=== PATIENT | female | born 1950 | race Caucasian/White ===

== ENCOUNTER → 2016-09-03 | Outpatient (CLI) | payer OTHER ==
[~2016-09-03] MED LIST: AMLO2.5T PO; ASPI81TA28 PO; CHOL2000 PO; CRS/10 PO; CYAN100020 PO; OPTIRAY 320 IV PRN
--- NOTE | 2016-09-03 14:20 | DIAGNOSTIC IMAGING REPORT ---
CT SOFT TISSUE NECK WITH CT DOSE: 351.21 mGycm CLINICAL HISTORY: LYMPHADENOPATHY TECHNIQUE: Helical images were acquired during intravenous administration of 119 cc of Optiray 320. COMPARISON STUDY: MRI study dated 12/09/2012 FINDINGS: The visualized portions of the lung apices are unremarkable. No thyroid masses are visualized. No salivary gland masses are visualized. There are no pathologically enlarged cervical lymph nodes. No necrotic nodes are evident. There are no fluid collections suspicious for abscess. There is no evidence of airway compromise. No mucosal space masses are visualized. IMPRESSION: No acute findings. No CT evidence of pathologic adenopathy. Electronically signed by: Dieudonne Rick M.D. 09/03/2016 2:18 PM Dictated Date/Time: 09/03/2016 2:16 PM
== END | disposition home or self-care (01) ==
LOC: C.CTS 13:51
PROVIDERS: ATTEND Internal Medicine Hematology & Oncology
DX: R59.9 Enlarged lymph nodes, unspecified (principal); D72.819 Decreased white blood cell count, unspecified; M35.00 Sjogren syndrome, unspecified

== ENCOUNTER → 2017-02-25 | Outpatient (CLI) | payer OTHER ==
[~2017-02-25] MED LIST changes: -OPTIRAY 320 IV PRN
[2017-02-25 13:10] LABS: CREATININE 0.84 mg/dl (0.60-1.20)
[2017-02-25 13:30] LABS: HEMATOCRIT 38.7 % (37-47); MEAN CELL VOLUME 90.8 fL (80-100); MEAN CORPUSCULAR HEMOGLOBIN 31.2 pg (25-34); MEAN CORPUSCULAR HGB CONC 34.4 g/dl (32-36); PLATELET COUNT 202 K/uL (130-400); RED BLOOD COUNT 4.26 M/uL (4.2-5.4); WHITE BLOOD COUNT 2.58 K/uL (4.8-10.8)
[2017-02-25 14:15] LABS: BASO % 0.8 %; BASO ABS # 0.02 K/uL (0-0.2); COMPLETE YES; EOS % 3.1 %; IG% 0.4 %; LYMPH % 56.2 %; LYMPH ABS # 1.45 K/uL (1.2-3.4); MONO % 7.8 %; NEUT % 31.7 %
[2017-03-01 05:02] LABS: ANTI-CENTROMERE AB <1.0 NEG AI (<1.0 NEG); ANTI-SS-A 1.3 POS AI (<1.0 NEG); ANTI-SS-B 1.8 POS AI (<1.0 NEG); DNA ds CRITHIDIA NEGATIVE (NEGATIVE); Sm Antibody <1.0 NEG AI (<1.0 NEG)
== END ==
LOC: C.LAB1850 10:22
PROVIDERS: ATTEND Internal Medicine Rheumatology
DX: R59.1 Generalized enlarged lymph nodes (principal); D72.819 Decreased white blood cell count, unspecified; M35.00 Sjogren syndrome, unspecified

== ENCOUNTER → 2017-03-05 | Outpatient (CLI) | payer OTHER ==
[~2017-03-05] MED LIST changes: +OPTIRAY 320 IV PRN
--- NOTE | 2017-03-05 14:01 | DIAGNOSTIC IMAGING REPORT ---
CT NECK WITH INTRAVENOUS CONTRAST HISTORY: Lymphadenopathy. Leukopenia. TECHNIQUE: Multiaxial CT images of the neck were performed following the use of intravenous contrast. COMPARISON STUDY: Neck CT 09/03/2016. FINDINGS: The visualized brain parenchyma and orbits are unremarkable. The major mucosal airway surfaces are intact. The epiglottis and prevertebral soft tissues are normal in thickness. The parotid and submandibular glands enhance symmetrically. No pathologically enlarged cervical lymph nodes. A few bilateral upper cervical lymph nodes and submandibular lymph nodes remain stable. These measure subcentimeter in short axis diameter. Dominant left submandibular lymph node measures 9 x 6 mm. The major cervical vessels enhance normally. The visualized paranasal sinuses and mastoid air cells are clear. No suspicious lytic or blastic osseous lesions. The thyroid gland enhances normally. Calcified plaque within the right carotid bulb resulting in approximately 40% focal stenosis. The visualized lungs are clear. IMPRESSION: 1. No change compared to the prior study. No CT evidence for pathologic lymphadenopathy. 2. Approximate 40% focal stenosis within the right carotid bulb. Electronically signed by: Igor Gonzalez M.D. 03/05/2017 1:59 PM Dictated Date/Time: 03/05/2017 1:52 PM
== END | disposition home or self-care (01) ==
LOC: C.CTS 13:31
PROVIDERS: ATTEND Internal Medicine Hematology & Oncology
DX: R59.0 Localized enlarged lymph nodes (principal); I65.21 Occlusion and stenosis of right carotid artery